=== PATIENT | female | born 1930 | race Caucasian/White ===

== ENCOUNTER 2017-05-19 19:56 | Emergency (ER) | payer OTHER ==
[~2017-05-19] VITALS: Ht 157.5 cm; Wt 52.2 kg
[~2017-05-19 19:56] MED LIST: ACETAMINOPHEN500 MG PO; ACIDOPHILUS1 EAC5 PO; ADALAT CC 60 MG60 MG PO; ALEVE220 MG PO; AMBIEN5 MG PO; BUSPAR10 MG PO; CALCIUM CITRAT200 MG PO; CEFDINIR300 MG PO; CEFTIN250 MG PO; CENTRUM COMPLE1 EACH PO; DIGOX125 MCG PO; DIGOX250 MCG PO; ELIQUIS2.5 MG PO; FLORASTOR250 MG PO; FOSINOPRIL SODI40 MG PO; FUROSEMIDE20 MG PO; HUMULIN 70100 UNIT/3 SC; HYDROCHLOROTH12.5 M3 PO; HYDROCHLOROTHIA25 MG PO; ICAPS MULTIV1 TABLET PO; KLONOPIN0.5 M1 PO; LEVEMIR FL100 UNITS/ SC; LEVO-T50 MCG PO; LEVOFLOXACIN500 MG PO; LIDOCAINE700 MG TD; MONOPRIL20 MG PO; NOVOLOG 10100 UNITS/ SC; NOVOLOG MI100 UNIT/4 SC; NOVOLOG MI100 UNIT/M PO; NOVOLOG PE100 UNITS/ SC; OMEPRAZOLE40 M1 PO; PREDNISONE10 MG PO; PRESERVISIO1 CAPSULE PO; PRILOSEC40 MG PO; SYNTHROID50 MCG PO; TENORMIN25 MG PO; TRAMADOL HCL50 MG PO; TRAZODONE HCL50 MG PO; ULTRAM50 MG PO; VERAPAMIL HCL240 MG PO; VITAMIN D-32000 UNI1 PO; VITAMIN D31000 UNIT PO
[2017-05-19 20:20] LABS: HEMATOCRIT 43.1 % (36.0-46.0); MCHC 34.3 G/DL (30.0-36.0); MCV 87.4 FL (83-99); MEAN PLAT.VOLUME 10.1 uM^3 (9.5-12.4); PLATELET COUNT 285 K/uL (156-360); RBC DIS.WIDTH-CV 13.4 % (11.8-14.6); RBC DIS.WIDTH-SD 43.1 % (39-53); RED BLOOD COUNT 4.93 M/uL (3.80-5.20); WHITE BLOOD COUNT 10.8 K/uL (4.1-10.2)
[2017-05-19 20:24] LABS: POINT-OF-CARE METER ID UU13113702
[2017-05-19 20:24] LABS: CREATININE 1.4 mg/dL (0.6-1.3); POTASSIUM 4.2 mEq/L (3.7-5.4)
[2017-05-19 20:39] LABS: CHLORIDE 103 mEq/L (99-109); POTASSIUM 4.2 mEq/L (3.7-5.4); SODIUM 142 mEq/L (136-147)
[2017-05-19 20:41] LABS: GLUCOSE 66 mg/dL (70-99)
[2017-05-19 20:42] LABS: ANION GAP 12 MEQ/L (2-14)
[2017-05-19 20:44] LABS: GFR ESTIMATE (CALCULATED) 38 mL/min/
[2017-05-19 20:45] LABS: UREA NITROGEN (BUN) 26 mg/dL (9-23)
[2017-05-19 22:48] LABS: INTER. NORMALIZED RATIO 1.2; PROTHROMBIN TIME 12.7 SEC (10.2-12.9)
[2017-05-19 23:13] LABS: POINT-OF-CARE METER ID UU13113702
[2017-05-20 00:53] VITALS: BP 148/85
== END 2017-05-20 00:54 | disposition short-term general hospital (02) ==
LOC: EME → EDBD 19:56 → EME 19:56
PROVIDERS: Emergency Medicine
DX: I63.9 Cerebral infarction, unspecified (principal); R29.810 Facial weakness; G81.94 Hemiplegia, unspecified affecting left nondominant side; I48.91 Unspecified atrial fibrillation; Z79.01 Long term (current) use of anticoagulants; E11.9 Type 2 diabetes mellitus without complications; Z79.4 Long term (current) use of insulin; I10 Essential (primary) hypertension
CPT/HCPCS: 70450; 70496; 70498; 71010; 80047; 80048; 82948; 85027; 85610; 93005; 99281; 99285